=== PATIENT | male | born 1960 | race African-American/Black ===

== ENCOUNTER 2024-02-11 21:48 | Emergency (ER) | payer OTHER ==
[2024-02-11] MEDS ORDERED: Boostrix 0.5 ML (Tdap) VIAL (>/=7 yrs of age) ONE (22:14)
== END 2024-02-11 22:52 | disposition home or self-care (01) ==
LOC: EEVIPCON 21:48 → NAV ERS 21:48
DX: S01.312A Laceration without foreign body of left ear, initial encounter (principal); I10 Essential (primary) hypertension; Z23 Encounter for immunization; W26.8XXA Contact with other sharp object(s), not elsewhere classified, initial encounter
CPT/HCPCS: 12011; 90471; 90715